=== PATIENT | male | born 1960 | race Caucasian/White ===

== ENCOUNTER 2023-01-25 08:52 | Day surgery (SDC) | payer MEDICARE ==
[2023-01-24 10:43] VITALS: BMI 32.3
[~2023-01-25 08:52] MED LIST: LACTATED RINGERS 1,000 ML IV SCH
[2023-01-25 09:26] VITALS: TEMP 96.9
[2023-01-25] MEDS ORDERED: PROPOFOL 10 MG/ML 20 ML VIAL IV ONE (09:50)
--- NOTE | 2023-01-25 10:09 | P.PCN ---
Date of Procedure: 01/25/23 Procedure(s) Performed: BRIEF HISTORY: Patient is a 62-year-old pleasant male scheduled for an elective colonoscopy as a part of screening for colon cancer. His last colonoscopy was 10 years ago. PROCEDURE PERFORMED: Colonoscopy. PREOPERATIVE DIAGNOSIS: Screening for colon cancer. IV sedation per Anesthesia. PROCEDURE: After informed consent was obtained, the patient, was brought into the endoscopy unit. IV sedation was administered by Anesthesia under continuous monitoring. Digital rectal examination was normal. Initially the Olympus CF-160 flexible video colonoscope was then inserted in the rectum, gradually advanced into the cecum without any difficulty. Careful examination was performed as the scope was gradually being withdrawn. Ileocecal valve and the appendiceal orifice were visualized and appeared normal. Prep was excellent. Mucosa of the cecum, ascending colon, transverse colon, descending colon, sigmoid colon, and rectum appeared normal. I melanosis coli noted. Scattered sigmoid diverticulosis Retroflexion was performed in the rectum and small internal hemorrhoids. The patient tolerated the procedure well. IMPRESSION: Normal-appearing colon from rectum to cecum with no evidence of colorectal neoplasia . Scattered sigmoid diverticulosis Melanosis coli RECOMMENDATIONS: Findings of this examination were discussed with the patient as well as a family.. He was advised to have a repeat screening colonoscopy in 10 years.
[2023-01-25 10:15] VITALS: RESP 16
[2023-01-25 10:40] VITALS: BP 127/83; PULSE 87
== END 2023-01-25 10:41 | disposition home or self-care (01) ==
LOC: ORWHC2ENDO 08:52
PROVIDERS: ATTEND Internal Medicine Gastroenterology
DX: Z12.11 Encounter for screening for malignant neoplasm of colon (principal); K57.30 Diverticulosis of large intestine without perforation or abscess without bleeding; K63.89 Other specified diseases of intestine; E78.5 Hyperlipidemia, unspecified; F32.A Depression, unspecified; D49.6 Neoplasm of unspecified behavior of brain; Z79.02 Long term (current) use of antithrombotics/antiplatelets
CPT/HCPCS: J2704; G0121; 45378